=== PATIENT | female | born 1995 | race Two or more races ===

== ENCOUNTER 2017-04-02 13:28 | Inpatient (IN) | payer SELFPAY ==
[2017-04-02 14:29] LABS: URINE HCG POC HCG NEGATIVE (Negative)
[2017-04-02 15:09] LABS: ADD MAN DIFF? YES; BASO % 0 % (0-3); EOS % 0 % (0-3); HEMATOCRIT 36.3 % (36.0-47.0); HEMOGLOBIN 12.4 g/dL (12.0-15.5); LYMPH # 1.2 x10^3/uL (1.0-4.8); LYMPH % 7 % (24-48); MEAN CORPUSCULAR HEMOGLOBIN 30 pg (25-35); MEAN CORPUSCULAR HGB CONC 34 g/dL (31-37); MEAN CORPUSCULAR VOLUME 89 fL (79-100); MONO % 6 % (0-9); NEUT # 13.8 x10^3uL (1.8-7.7); NEUT % 87 % (31-73); PLATELET COUNT 199 x10^3/uL (140-400); RED BLOOD COUNT 4.07 x10^6/uL (3.50-5.40); RED CELL DISTRIBUTION WIDTH 12.7 % (11.5-14.5); WHITE BLOOD COUNT 15.9 x10^3/uL (4.0-11.0)
[2017-04-02 15:10] LABS: BILIRUBIN,URINE NEGATIVE (NEG); CLARITY,URINE CLOUDY; COLOR,URINE YELLOW; GLUCOSE,URINE NEGATIVE (NEG); NITRITE,URINE NEGATIVE (NEG); PROTEIN,URINE 100 mg/dL (NEG-TRACE); UROBILINOGEN,URINE 0.2 mg/dL (0.2 mg/dL)
[2017-04-02 15:19] LABS: BACTERIA,URINE MANY /HPF (0-FEW); RBC,URINE OCC /HPF (0-2); SQUAMOUS EPITHELIAL CELL,UR MOD /LPF; WBC,URINE >40 /HPF (0-4)
[2017-04-02 15:22] LABS: ALBUMIN 3.3 g/dL (3.4-5.0); ALBUMIN/GLOBULIN RATIO 0.7 (1.0-1.7); ALK PHOS 71 U/L (46-116); ALT (SGPT) 17 U/L (14-59); ANION GAP 11 (6-14); AST (SGOT) 15 U/L (15-37); BLOOD UREA NITROGEN 10 mg/dL (7-20); BUN/CREATININE RATIO 13 (6-20); CALCIUM 8.6 mg/dL (8.5-10.1); CARBON DIOXIDE 27 mmol/L (21-32); CHLORIDE 98 mmol/L (98-107); CREATININE 0.8 mg/dL (0.6-1.0); GFR 89.7; GLUCOSE 125 mg/dL (70-99); POTASSIUM 3.4 mmol/L (3.5-5.1); SODIUM 136 mmol/L (136-145); TOTAL BILIRUBIN 0.2 mg/dL (0.2-1.0); TOTAL PROTEIN 8.3 g/dL (6.4-8.2)
[2017-04-02 15:36] LABS: % LYMPHS 4 % (24-48); % MONOS 2 % (0-10); % SEGS 94 % (35-66); OVALOCYTES OCC; PLT ESTIMATE ADEQUATE (ADEQUATE); SCHISTOCYTES OCC
[2017-04-02] MEDS: ONDANSETRON PF 4 MG/2 ML VIAL. IV ×3 (15:39→21:18)
[2017-04-02] MEDS: IV NORMAL SALINE 1000ML BAG 1,000 ML IV ×3 (15:39→18:08)
[2017-04-02 16:30] LABS: BILIRUBIN,URINE NEGATIVE (NEG); COLOR,URINE YELLOW; GLUCOSE,URINE NEGATIVE (NEG); NITRITE,URINE NEGATIVE (NEG); PROTEIN,URINE 100 mg/dL (NEG-TRACE); UROBILINOGEN,URINE 0.2 mg/dL (0.2 mg/dL)
[2017-04-02 16:40] LABS: CLARITY,URINE HAZY
[2017-04-02 16:42] LABS: BACTERIA,URINE MANY /HPF (0-FEW); RBC,URINE RARE /HPF (0-2); WBC,URINE >40 /HPF (0-4)
[2017-04-02] MEDS: KETOROLAC 30 MG/ML INJ. IV (16:42)
[2017-04-02 16:43] LABS: SQUAMOUS EPITHELIAL CELL,UR FEW /LPF
[2017-04-02] MEDS ORDERED: fentaNYL PF VIAL 100 MCG/2 ML VIAL IV (17:30)
[2017-04-02] MEDS: PROMETHAZINE 12.5 MG in IV DEXTROSE 5% 50 ML IV (17:43)
[2017-04-02] MEDS ORDERED: DOCUSATE SODIUM 100 MG CAPSULE. PO (18:45)
[2017-04-02] MEDS ORDERED: traMADol 50 MG TABLET PO (18:45)
[2017-04-02] MEDS ORDERED: hydrALAZINE 20 MG/ML VIAL. IVP (18:45)
[2017-04-02] MEDS ORDERED: MORPHINE SULFATE 2 MG/ML DISP.SYRIN. IV (18:45)
[2017-04-02] MEDS: POTASSIUM CHLORIDE 20 MEQ TABLET.ER. PO (19:32)
[2017-04-02] MEDS: ACETAMINOPHEN 325 MG TABLET. PO (19:53)
[2017-04-02] MEDS: OXYBUTYNIN CHLORIDE 5 MG TABLET PO (20:53)
[2017-04-03] MEDS: IV NORMAL SALINE 1000ML BAG 1,000 ML IV ×3 (02:16→19:55)
[2017-04-03] MEDS: ACETAMINOPHEN 325 MG TABLET. PO ×3 (05:16→20:06)
[2017-04-03 05:53] LABS: ADD MAN DIFF? NO
[2017-04-03 06:05] LABS: BASO % 0 % (0-3); EOS % 0 % (0-3); HEMATOCRIT 35.6 % (36.0-47.0); HEMOGLOBIN 11.5 g/dL (12.0-15.5); LYMPH # 1.1 x10^3/uL (1.0-4.8); LYMPH % 9 % (24-48); MEAN CORPUSCULAR HEMOGLOBIN 29 pg (25-35); MEAN CORPUSCULAR HGB CONC 32 g/dL (31-37); MEAN CORPUSCULAR VOLUME 91 fL (79-100); MONO # 1.3 x10^3/uL (0.0-1.1); MONO % 10 % (0-9); NEUT # 10.5 x10^3uL (1.8-7.7); NEUT % 81 % (31-73); PLATELET COUNT 169 x10^3/uL (140-400); RED BLOOD COUNT 3.92 x10^6/uL (3.50-5.40); RED CELL DISTRIBUTION WIDTH 13.2 % (11.5-14.5)
[2017-04-03 06:24] LABS: ANION GAP 10 (6-14); BLOOD UREA NITROGEN 10 mg/dL (7-20); CALCIUM 8.3 mg/dL (8.5-10.1); CARBON DIOXIDE 24 mmol/L (21-32); CHLORIDE 104 mmol/L (98-107); CREATININE 0.7 mg/dL (0.6-1.0); GFR 104.6; GLUCOSE 95 mg/dL (70-99); POTASSIUM 4.5 mmol/L (3.5-5.1); SODIUM 138 mmol/L (136-145)
[2017-04-03] MEDS ORDERED: INFLUENZA VAX SCREEN BY RX. MC (06:45)
[2017-04-03] MEDS: ENOXAPARIN 40 MG/0.4 ML SYRINGE. SQ (10:09)
[2017-04-03] MEDS: OXYBUTYNIN CHLORIDE 5 MG TABLET PO ×3 (10:09→20:08)
[2017-04-03] MEDS: ONDANSETRON PF 4 MG/2 ML VIAL. IV ×2 (12:38→18:16)
[2017-04-03] MEDS: cefTRIAXone IV Push 1 GM VIAL. IVP (17:02)
[2017-04-03] MEDS: PROMETHAZINE 12.5 MG in IV DEXTROSE 5% 50 ML IV (19:56)
[2017-04-03] MEDS: LACTOBACILLUS RHAMNOSUS GG 1 CAPSULE. PO (20:06)
[2017-04-04] MEDS: IV NORMAL SALINE 1000ML BAG 1,000 ML IV ×3 (04:32→23:09)
[2017-04-04 05:38] LABS: ADD MAN DIFF? NO
[2017-04-04 06:04] LABS: BASO % 0 % (0-3); EOS % 0 % (0-3); HEMATOCRIT 34.1 % (36.0-47.0); HEMOGLOBIN 11.4 g/dL (12.0-15.5); LYMPH # 1.7 x10^3/uL (1.0-4.8); LYMPH % 15 % (24-48); MEAN CORPUSCULAR HEMOGLOBIN 30 pg (25-35); MEAN CORPUSCULAR HGB CONC 34 g/dL (31-37); MEAN CORPUSCULAR VOLUME 90 fL (79-100); MONO # 1.2 x10^3/uL (0.0-1.1); MONO % 10 % (0-9); NEUT # 8.3 x10^3uL (1.8-7.7); NEUT % 74 % (31-73); PLATELET COUNT 189 x10^3/uL (140-400); RED CELL DISTRIBUTION WIDTH 12.9 % (11.5-14.5); WHITE BLOOD COUNT 11.2 x10^3/uL (4.0-11.0)
[2017-04-04 06:34] LABS: ALBUMIN 2.3 g/dL (3.4-5.0); ALBUMIN/GLOBULIN RATIO 0.6 (1.0-1.7); ALK PHOS 56 U/L (46-116); ALT (SGPT) 17 U/L (14-59); ANION GAP 12 (6-14); AST (SGOT) 20 U/L (15-37); BLOOD UREA NITROGEN 7 mg/dL (7-20); BUN/CREATININE RATIO 12 (6-20); CALCIUM 7.7 mg/dL (8.5-10.1); CARBON DIOXIDE 23 mmol/L (21-32); CHLORIDE 104 mmol/L (98-107); CREATININE 0.6 mg/dL (0.6-1.0); GLUCOSE 79 mg/dL (70-99); POTASSIUM 3.5 mmol/L (3.5-5.1); SODIUM 139 mmol/L (136-145); TOTAL BILIRUBIN 0.2 mg/dL (0.2-1.0); TOTAL PROTEIN 6.4 g/dL (6.4-8.2)
[2017-04-04 07:46] LABS: INR 1.2 (0.8-1.1); PROTHROMBIN TIME PATIENT 14.8 SEC (11.7-14.0)
[2017-04-04] MEDS: ACETAMINOPHEN 325 MG TABLET. PO (09:30)
[2017-04-04] MEDS: OXYBUTYNIN CHLORIDE 5 MG TABLET PO ×3 (09:31→20:53)
[2017-04-04] MEDS: LACTOBACILLUS RHAMNOSUS GG 1 CAPSULE. PO ×2 (09:31→20:53)
[2017-04-04] MEDS: ENOXAPARIN 40 MG/0.4 ML SYRINGE. SQ (09:31)
[2017-04-04] MEDS: cefTRIAXone IV Push 1 GM VIAL. IVP (16:44)
[2017-04-05 06:22] LABS: ADD MAN DIFF? NO
[2017-04-05 06:45] LABS: ANION GAP 8 (6-14); BLOOD UREA NITROGEN 7 mg/dL (7-20); CALCIUM 8.2 mg/dL (8.5-10.1); CARBON DIOXIDE 27 mmol/L (21-32); CHLORIDE 106 mmol/L (98-107); CREATININE 0.6 mg/dL (0.6-1.0); GLUCOSE 109 mg/dL (70-99); POTASSIUM 3.7 mmol/L (3.5-5.1); SODIUM 141 mmol/L (136-145)
[2017-04-05 06:51] LABS: BASO % 0 % (0-3); EOS % 0 % (0-3); HEMATOCRIT 34.4 % (36.0-47.0); HEMOGLOBIN 11.6 g/dL (12.0-15.5); LYMPH # 1.9 x10^3/uL (1.0-4.8); LYMPH % 24 % (24-48); MEAN CORPUSCULAR HEMOGLOBIN 30 pg (25-35); MEAN CORPUSCULAR HGB CONC 34 g/dL (31-37); MEAN CORPUSCULAR VOLUME 90 fL (79-100); MONO # 0.8 x10^3/uL (0.0-1.1); MONO % 10 % (0-9); NEUT # 5.3 x10^3uL (1.8-7.7); NEUT % 65 % (31-73); PLATELET COUNT 201 x10^3/uL (140-400); RED BLOOD COUNT 3.84 x10^6/uL (3.50-5.40); WHITE BLOOD COUNT 8.1 x10^3/uL (4.0-11.0)
[2017-04-05] MEDS: OXYBUTYNIN CHLORIDE 5 MG TABLET PO (09:02)
[2017-04-05] MEDS: LACTOBACILLUS RHAMNOSUS GG 1 CAPSULE. PO (09:02)
[2017-04-05] MEDS: ENOXAPARIN 40 MG/0.4 ML SYRINGE. SQ (09:03)
[2017-04-05] MEDS: FLU VACC QS2017-18 (36MOS+)/PF 0.5 ML SYRINGE. VAX IM (09:05)
[2017-04-05] MEDS: IV NORMAL SALINE 1000ML BAG 1,000 ML IV (09:08)
[2017-04-05] MEDS: ACETAMINOPHEN 325 MG TABLET. PO (14:48)
== END 2017-04-05 15:35 | disposition home or self-care (01) | DRG 872 ==
LOC: ER 13:28 → 5 SOUTH 17:05
DX: A41.9 Sepsis, unspecified organism (principal); N10 Acute pyelonephritis; E87.6 Hypokalemia; N30.90 Cystitis, unspecified without hematuria; Z82.49 Family history of ischemic heart disease and other diseases of the circulatory system
CPT/HCPCS: 36415; 80048; 80053; 81001; 81025; 83605; 85007; 85025; 85610; 87086; 87186; 90686; 96365; 96375; 96376; 99285; 99285-25; J0696; J1650; J1885; J1956; J2405; J2550; J7030